=== PATIENT | male | born 1970 | race Caucasian/White ===

== ENCOUNTER 2018-10-09 16:37 | Emergency (ER) | payer OTHER ==
[2018-10-09] MEDS ORDERED: Ondansetron 4 MG/2 ML SDV IVPUSH ONE (17:11)
[2018-10-09] MEDS ORDERED: Sodium Chloride 0.9% 1,000 ML IV ONE ×2 (17:11→18:40)
--- NOTE | 2018-10-09 17:14 | EDM.PDOC ---
ED HPI GENERAL MEDICAL PROBLEM - General Chief Complaint: General Stated Complaint: FLU Time Seen by Provider: 10/09/18 17:11 Source of Information: Reports: Patient History Limitations: Reports: No Limitations - History of Present Illness INITIAL COMMENTS - FREE TEXT/NARRATIVE: HISTORY AND PHYSICAL: History of present illness: Patient is a 48 year old male who presents to the ED today with concern of nausea, vomiting x 1, and diarrhea x 2 days. Patient states his worst concern is the diarrhea. He describes it as watery and states that in 1 day he is had about 15 or more episodes. Patient states he has had one episode of vomiting today. Patient states along the diarrhea he has been having some generalized abdominal pain that he rates a 4/10. Patient states he's had difficulties eating and drinking due to nausea today. Patient is concerned about dehydration as he has had lots of diarrhea and not been able to drink fluids. Patient denies fever, chills, chest pain, shortness of breath, or cough. Denies headache, neck stiff ness, change in vision, syncope, or near syncope. Denies dysuria. Has not noted any blood in urine or stool. Patient denies scrotal pain , masses, or tenderness. Patient has a history of prior kidney stones but denies any other health history. Review of systems: As per history of present illness and below otherwise all systems reviewed and negative. Past medical history: As per history of present illness and as reviewed below otherwise noncontributory. Surgical history: As per history of present illness and as reviewed below otherwise noncontributory. Social history: See social history for further information Family history: As per history of present illness and as reviewed below otherwise noncontributory. Physical exam: General: Patient is alert, oriented, and in no acute distress. Patient sitting comfortably on exam table and is tired appearing. Vomiting on exam. HEENT: Atraumatic, normocephalic, pupils equal and reactive bilaterally, negative for conjunctival pallor or scleral icterus, mucous membranes dry and tacky, TMs normal bilaterally, throat clear, neck supple, nontender, trachea midline. No drooling or trismus noted. No meningeal signs. No hot potato voice noted. Lungs: Clear to auscultation, breath sounds equal bilaterally, chest nontender. Heart: S1S2, regular rate and rhythm without overt murmur Abdomen: Generalized mild pain to palpation without guarding. Positive bowel sounds throughout all quadrants. Otherwise, soft, nondistended. Negative for masses or hepatosplenomegaly. Negative for costovertebral tenderness. Pelvis: Stable nontender. Genitourinary: Deferred. Rectal: Deferred. Skin: Intact, warm, dry. No lesions or rashes noted. Extremities: Atraumatic, negative for cords or calf pain. Neurovascular unremarkable. Neuro: Awake, alert, oriented. Cranial nerves II through XII unremarkable. Cerebellum unremarkable. Motor and sensory unremarkable throughout. Exam nonfocal. Notes: On initial exam, patient did have several episodes of emesis. Following therapeutics, patient's vomiting has resolved throughout the rest of his stay in the ED. After fluids were given, patient expresses resolution of his symptoms. Did offer admission for observation but patient declines and states he is quite comfortable going home. Discussed the importance for follow-up with the primary care provider. Supportive care measures were reviewed and discussed. Voices understanding and is agreeable to plan of care. Denies any further questions or concerns at this time. Diagnostics: CBC, CMP, lactate, lipase, UA, stool studies, strep, influenza, troponin, chest x-ray, abdominal pelvic CT, blood cultures 2 Therapeutics: Zofran, normal saline, Ativan Prescription: Zofran Impression: Dehydration Gastroenteritis Nonobstructive calculus of kidney Plan: 1. Take medications as prescribed. Encourage small but frequent sips of fluids to prevent dehydration. 2. Follow-up with your primary care provider as discussed. 3. Return to the ED as needed and as discussed. Definitive disposition and diagnosis as appropriate pending reevaluation and review of above. - Related Data Allergies Allergy/AdvReac Type Severity Reaction Status Date / Time No Known Allergies Allergy Verified 10/09/18 17:07 Home Meds: Home Meds Ondansetron [Zofran ODT] 4 mg PO Q6H PRN #10 tab.dis 10/09/18 [Rx] Warfarin [Coumadin] 7.5 mg PO DAILY 10/09/18 [History] Past Medical History - Past Health History Medical/Surgical History: Denies Medical/Surgical History HEENT History: Reports: None Cardiovascular History: Reports: None Respiratory History: Reports: None Gastrointestinal History: Reports: None Genitourinary History: Reports: None Musculoskeletal History: Reports: None Neurological History: Reports: None Psychiatric History: Reports: Anxiety Endocrine/Metabolic History: Reports: None Hematologic History: Reports: None Other Hematologic History: DVT Dermatologic History: Reports: None - Infectious Disease History Infectious Disease History: Reports: Chicken Pox - Past Surgical History HEENT Surgical History: Reports: None Social & Family History - Family History Family Medical History: Noncontributory - Tobacco Use Smoking Status *Q: Never Smoker - Recreational Drug Use Recreational Drug Use: No ED ROS GENERAL - Review of Systems Review Of Systems: ROS reveals no pertinent complaints other than HPI. ED EXAM, GENERAL - Physical Exam Exam: See Below (See dictation) Course - Vital Signs Last Recorded V/S: Last Vital Signs Temp 37.6 C 10/09/18 21:50 Pulse 92 10/09/18 21:50 Resp 16 10/09/18 21:50 BP 103/57 L 10/09/18 21:50 Pulse Ox 95 10/09/18 21:50 - Orders/Labs/Meds Labs: Laboratory Tests 10/09/18 10/09/18 10/09/18 Range/Units 17:25 17:25 20:50 WBC 16.23 H (4.0-11.0) K/uL RBC 5.62 (4.50-5.90) M/uL Hgb 17.1 H (13.0-17.0) g/dL Hct 48.2 (38.0-50.0) % MCV 85.8 (80.0-98.0) fL MCH 30.4 (27.0-32.0) pg MCHC 35.5 (31.0-37.0) g/dL RDW Std Deviation 41.4 (28.0-62.0) fl RDW Coeff of Teofilo 13 (11.0-15.0) % Plt Count 273 (150-400) K/uL MPV 11.00 (7.40-12.00) fL Neut % (Auto) 85.7 H (48.0-80.0) % Lymph % (Auto) 5.2 L (16.0-40.0) % [place] % (Auto) 9.0 (0.0-15.0) % Eos % (Auto) 0.0 (0.0-7.0) % Baso % (Auto) 0.1 (0.0-1.5) % Neut # (Auto) 13.9 H (1.4-5.7) K/uL Lymph # (Auto) 0.9 (0.6-2.4) K/uL [place] # (Auto) 1.5 H (0.0-0.8) K/uL Eos # (Auto) 0.0 (0.0-0.7) K/uL Baso # (Auto) 0.0 (0.0-0.1) K/uL Nucleated RBC % 0.0 /100WBC Nucleated RBCs # 0 K/uL Lactate (0.20-2.00) mmol/L Sodium 140 (136-148) mmol/L Potassium 3.0 L (3.5-5.1) mmol/L Chloride 103 (98-107) mmol/L Carbon Dioxide 16.6 L (21.0-32.0) mmol/L BUN 41 H (7.0-18.0) mg/dL Creatinine 2.0 H (0.8-1.3) mg/dL Est Cr Clr Drug Dosing 42.69 mL/min Estimated GFR (MDRD) 36.0 ml/min Glucose 154 H (74-106) mg/dL Calcium 9.1 (8.5-10.1) mg/dL Total Bilirubin 0.5 (0.2-1.0) mg/dL AST 23 (15-37) IU/L ALT 26 (14-63) IU/L Alkaline Phosphatase 65 (46-116) U/L Troponin I < 0.050 (0.000-0.056) ng/mL Total Protein 8.9 H (6.4-8.2) g/dL Albumin 4.1 (3.4-5.0) g/dL Globulin 4.8 H (2.6-4.0) g/dL Albumin/Globulin Ratio 0.9 (0.9-1.6) Lipase 214 (73-393) U/L Urine Color DARK YELLOW Urine Appearance CLEAR Urine pH 6.0 (5.0-8.0) Ur Specific [place] 1.025 (1.001-1.035) Urine Protein 100 H (NEGATIVE) mg/dL Urine Glucose (UA) NEGATIVE (NEGATIVE) mg/dL Urine Ketones NEGATIVE (NEGATIVE) mg/dL Urine Occult Blood NEGATIVE (NEGATIVE) Urine Nitrite NEGATIVE (NEGATIVE) Urine Bilirubin NEGATIVE (NEGATIVE) Urine Urobilinogen 0.2 (<2.0) EU/dL Ur Leukocyte Esterase NEGATIVE (NEGATIVE) Urine RBC 0-2 (0-2/HPF) Urine WBC 0-2 (0-5/HPF) Ur Epithelial Cells OCCASIONAL (NONE-FEW) Urine Bacteria FEW (NEGATIVE) Fine Granular Casts 0-3 (NEGATIVE) Urine Mucus MODERATE (NONE-MOD) 10/09/18 Range/Units 21:04 WBC (4.0-11.0) K/uL RBC (4.50-5.90) M/uL Hgb (13.0-17.0) g/dL Hct (38.0-50.0) % MCV (80.0-98.0) fL MCH (27.0-32.0) pg MCHC (31.0-37.0) g/dL RDW Std Deviation (28.0-62.0) fl RDW Coeff of Teofilo (11.0-15.0) % Plt Count (150-400) K/uL MPV (7.40-12.00) fL Neut % (Auto) (48.0-80.0) % Lymph % (Auto) (16.0-40.0) % [place] % (Auto) (0.0-15.0) % Eos % (Auto) (0.0-7.0) % Baso % (Auto) (0.0-1.5) % Neut # (Auto) (1.4-5.7) K/uL Lymph # (Auto) (0.6-2.4) K/uL [place] # (Auto) (0.0-0.8) K/uL Eos # (Auto) (0.0-0.7) K/uL Baso # (Auto) (0.0-0.1) K/uL Nucleated RBC % /100WBC Nucleated RBCs # K/uL Lactate 1.0 (0.20-2.00) mmol/L Sodium (136-148) mmol/L Potassium (3.5-5.1) mmol/L Chloride (98-107) mmol/L Carbon Dioxide (21.0-32.0) mmol/L BUN (7.0-18.0) mg/dL Creatinine (0.8-1.3) mg/dL Est Cr Clr Drug Dosing mL/min Estimated GFR (MDRD) ml/min Glucose (74-106) mg/dL Calcium (8.5-10.1) mg/dL Total Bilirubin (0.2-1.0) mg/dL AST (15-37) IU/L ALT (14-63) IU/L Alkaline Phosphatase (46-116) U/L Troponin I (0.000-0.056) ng/mL Total Protein (6.4-8.2) g/dL Albumin (3.4-5.0) g/dL Globulin (2.6-4.0) g/dL Albumin/Globulin Ratio (0.9-1.6) Lipase (73-393) U/L Urine Color Urine Appearance Urine pH (5.0-8.0) Ur Specific [place] (1.001-1.035) Urine Protein (NEGATIVE) mg/dL Urine Glucose (UA) (NEGATIVE) mg/dL Urine Ketones (NEGATIVE) mg/dL Urine Occult Blood (NEGATIVE) Urine Nitrite (NEGATIVE) Urine Bilirubin (NEGATIVE) Urine Urobilinogen (<2.0) EU/dL Ur Leukocyte Esterase (NEGATIVE) Urine RBC (0-2/HPF) Urine WBC (0-5/HPF) Ur Epithelial Cells (NONE-FEW) Urine Bacteria (NEGATIVE) Fine Granular Casts (NEGATIVE) Urine Mucus (NONE-MOD) Meds: Medications Discontinued Medications Generic Name Dose Route Start Last Admin Trade Name Freq PRN Reason Stop Dose Admin Sodium Chloride 1,000 mls @ 999 mls/hr 10/09/18 17:11 10/09/18 17:37 Normal Saline IV 10/09/18 18:11 999 mls/hr STAT ONE Administration Sodium Chloride 1,000 mls @ 999 mls/hr 10/09/18 18:40 10/09/18 18:48 Normal Saline IV 10/09/18 19:40 999 mls/hr ONETIME ONE Administration Lorazepam 0.5 mg 10/09/18 17:41 10/09/18 18:02 Ativan IVPUSH 10/09/18 17:42 Not Given ONETIME ONE Ondansetron HCl 4 mg 10/09/18 17:11 10/09/18 17:37 Zofran IVPUSH 10/09/18 17:12 4 mg ONETIME ONE Administration Departure - Departure Time of Disposition: 21:35 Disposition: Home, Self-Care 01 Clinical Impression: Dehydration, Calculus of kidney, Gastroenteritis - Discharge Information Prescriptions: Ondansetron [Zofran ODT] 4 mg PO Q6H PRN #10 tab.dis PRN Reason: Nausea Instructions: Viral Gastroenteritis, Adult, [id number], Kidney Stones, Easy- to-Read, Dehydration, Adult, [id number] Referrals: PCP,None [Primary Care Provider] - Forms: ED Department Discharge Additional Instructions: The following information is given to patients seen in the emergency department who are being discharged to home. This information is to outline your options for follow-up care. We provide all patients seen in our emergency department with a follow-up referral. The need for follow-up, as well as the timing and circumstances, are variable depending upon the specifics of your emergency department visit. If you don't have a primary care physician on staff, we will provide you with a referral. We always advise you to contact your personal physician following an emergency department visit to inform them of the circumstance of the visit and for follow-up with them and/or the need for any referrals to a consulting specialist. The emergency department will also refer you to a specialist when appropriate. This referral assures that you have the opportunity for follow-up care with a specialist. All of these measure are taken in an effort to provide you with optimal care, which includes your follow-up. Under all circumstances we always encourage you to contact your private physician who remains a resource for coordinating your care. When calling for follow-up care, please make the office aware that this follow-up is from your recent emergency room visit. If for any reason you are refused follow-up, please contact the [facility] Emergency Department at and asked to speak to the emergency department charge nurse. [facility] [address] [place] [id number] [facility] [address] [place] [id number] 1. Take medications as prescribed. Encourage small but frequent sips of fluids to prevent dehydration. 2. Follow-up with your primary care provider as discussed. 3. Return to the ED as needed and as discussed.
[2018-10-09] MEDS ORDERED: LORazepam 2 MG/ML SDV IVPUSH ONE (17:41)
[2018-10-09 18:41] LABS: CHLORIDE,CL 103 mmol/L (98-107); SODIUM,NA 140 mmol/L (136-148)
--- NOTE | 2018-10-09 19:18 | CR ---
INDICATION: vomiting, diarrhea, fever TECHNIQUE: Chest 1 view. COMPARISON: None. FINDINGS: Cardiovascular and mediastinum: Heart size and vasculature are normal in caliber and appearance. Mediastinum is within normal limits. Lungs and pleural space: Lungs are clear. No sign of infiltrate or mass. No sign of pleural effusion. No pneumothorax. Bones and soft tissues: No significant findings. IMPRESSION: Unremarkable chest. Dictated by: Flynn Ying MD @ 10/09/2018 19:16:17 (Electronically Signed)
--- NOTE | 2018-10-09 19:38 | CT ---
INDICATION: Right lower quadrant pain COMPARISON: 06/05/2018 TECHNIQUE: CT examination of the abdomen and pelvis was performed without contrast enhancement using 3 mm thick axial sections from the lung bases through the pubic symphysis. Oral contrast was not administered. Please note that all CT scans at this facility use dose modulation, iterative reconstruction, and/or weight-based dosing when appropriate to reduce radiation dose to as low as reasonably achievable. FINDINGS: In the abdomen, the unenhanced liver, pancreas, and adrenals are normal in appearance. A few small calcified granulomata are again seen in the spleen. The previously seen minimal right hydronephrosis and hydroureter have resolved with passage of the previously seen tiny right UVJ calculus. There is a tiny nonobstructive calculus in the lower pole of the right kidney measuring 4 millimeters in diameter, unchanged from the previous study. The unenhanced kidneys are otherwise normal in appearance. The gallbladder is normal in appearance. The abdominal aorta is normal in caliber with no sign of dilatation. There is no sign of retroperitoneal mass or adenopathy. The stomach, loops of small bowel, and colon in the abdomen are normal in appearance. In the pelvis, the appendix is normal in appearance with no sign of inflammatory process. The loops of small bowel and colon in the pelvis are normal in appearance. The prostate is normal in appearance. The urinary bladder is normal in appearance. There is no sign of pelvic or inguinal mass or adenopathy. The lung bases are clear. The osseous structures are normal in appearance for the patient`s age. IMPRESSION: Nothing seen to explain the patient`s right lower quadrant pain. Normal appearance of the appendix. Resolution of previously seen right hydronephrosis and hydroureter with passage of the previously seen tiny right UVJ calculus. CT of the abdomen shows stable appearance of the urinary system except for stable nonobstructive 4 millimeter calculus in the lower pole of the right kidney. Normal CT of the pelvis without contrast. Please note that all CT scans at this facility use dose modulation, iterative reconstruction, and/or weight-based dosing when appropriate to reduce radiation dose to as low as reasonably achievable. Dictated by Cain Brandt MD @ Oct 09 2018 7:29PM Signed by Dr. Cain Brandt @ Oct 09 2018 7:35PM
== END 2018-10-09 21:50 | disposition home or self-care (01) ==
LOC: MW.ED 16:37
DX: K52.9 Noninfective gastroenteritis and colitis, unspecified (principal); N13.2 Hydronephrosis with renal and ureteral calculous obstruction
CPT/HCPCS: 36415; 71045; 74176; 80053; 81001; 83605; 83690; 84484; 85025; 87040; 87046; 87081; 87324; 87328; 87329; 87804; 87880; 87899; 93005; 96361; 96374; 99284; J2405; J7040

== ENCOUNTER 2019-05-06 08:59 | Emergency (ER) | payer OTHER ==
--- NOTE | 2019-05-06 09:45 | EDM.PDOC ---
ED HPI GENERAL MEDICAL PROBLEM - General Chief Complaint: General Stated Complaint: SPOKE TO NURSE Time Seen by Provider: 05/06/19 08:59 Source of Information: Reports: Patient History Limitations: Reports: No Limitations - History of Present Illness INITIAL COMMENTS - FREE TEXT/NARRATIVE: History of present illness: []Patient has a history of hemorrhoid and this morning it had dark blood expressed from it and then an episode of bright red blood. It has since talked. He denies any fevers, chills or abdominal pain. He called an advice nurse who told him to come to the ER because he is feeling dizzy. Review of systems: As per history of present illness and below otherwise all systems reviewed and negative. Past medical history: As per history of present illness and as reviewed below otherwise noncontributory. Surgical history: As per history of present illness and as reviewed below otherwise noncontributory. Social history: No reported history of drug or alcohol abuse. Family history: As per history of present illness and as reviewed below otherwise noncontributory. Physical exam: General: Well developed, well nourished in NAD HEENT: Atraumatic, normocephalic, pupils reactive, negative for conjunctival pallor or scleral icterus, mucous membranes moist, throat clear, neck supple, nontender, trachea midline. Lungs: Clear to auscultation, breath sounds equal bilaterally, chest nontender. Heart: S1S2, regular, negative for clicks, rubs, or JVD. Abdomen: NABS, Soft, nondistended, nontender. Negative for masses or hepatosplenomegaly. Negative for costovertebral tenderness. Pelvis: Stable nontender. Genitourinary: Deferred. Rectal: opened external hemorrhoid with clot, no active bleeding Extremities: Atraumatic, negative for cords or calf pain. Neurovascular unremarkable. Neuro: Awake, alert, oriented. Cranial nerves II through XII unremarkable. Cerebellum unremarkable. Motor and sensory unremarkable throughout. Exam nonfocal. Skin:warm and dry Diagnostics: None, vital signs stable Therapeutics: None ED Course: Stable Impression: Hemorrhoid Prescriptions: Aidan's butt balm, Plan: Sitz baths, follow-up with general surgery use cream 3 times a day. Definitive disposition and diagnosis as appropriate pending reevaluation and review of above. - Related Data Allergies Allergy/AdvReac Type Severity Reaction Status Date / Time No Known Allergies Allergy Verified 05/06/19 09:22 Home Meds: Home Meds . [No Known Home Meds] 05/06/19 [History] Past Medical History - Past Health History Medical/Surgical History: Denies Medical/Surgical History HEENT History: Reports: None Cardiovascular History: Reports: None Respiratory History: Reports: None Gastrointestinal History: Reports: None Genitourinary History: Reports: None Musculoskeletal History: Reports: None Neurological History: Reports: None Psychiatric History: Reports: Anxiety Endocrine/Metabolic History: Reports: None Hematologic History: Reports: None Other Hematologic History: DVT Dermatologic History: Reports: None - Infectious Disease History Infectious Disease History: Reports: Chicken Pox - Past Surgical History HEENT Surgical History: Reports: None Social & Family History - Family History Family Medical History: Noncontributory - Tobacco Use Smoking Status *Q: Never Smoker Second Hand Smoke Exposure: No - Caffeine Use Caffeine Use: Reports: None - Recreational Drug Use Recreational Drug Use: No ED ROS GENERAL - Review of Systems Review Of Systems: See Below ED EXAM, GENERAL - Physical Exam Exam: See Below Course - Vital Signs Last Recorded V/S: Last Vital Signs Temp 96.3 F 05/06/19 09:19 Pulse 50 L 05/06/19 09:19 Resp 18 05/06/19 09:19 BP 130/86 05/06/19 09:19 Pulse Ox 95 05/06/19 09:19 Departure - Departure Time of Disposition: 09:47 Disposition: Home, Self-Care 01 Condition: Good Clinical Impression: External hemorrhoid - Discharge Information *PRESCRIPTION DRUG MONITORING PROGRAM REVIEWED*: No *COPY OF PRESCRIPTION DRUG MONITORING REPORT IN PATIENT GLEN: No Referrals: PCP,None [Primary Care Provider] - Forms: ED Department Discharge Additional Instructions: The following information is given to patients seen in the emergency department who are being discharged to home. This information is to outline your options for follow-up care. We provide all patients seen in our emergency department with a follow-up referral. The need for follow-up, as well as the timing and circumstances, are variable depending upon the specifics of your emergency department visit. If you don't have a primary care physician on staff, we will provide you with a referral. We always advise you to contact your personal physician following an emergency department visit to inform them of the circumstance of the visit and for follow-up with them and/or the need for any referrals to a consulting specialist. The emergency department will also refer you to a specialist when appropriate. This referral assures that you have the opportunity for follow-up care with a specialist. All of these measure are taken in an effort to provide you with optimal care, which includes your follow-up. Under all circumstances we always encourage you to contact your private physician who remains a resource for coordinating your care. When calling for follow-up care, please make the office aware that this follow-up is from your recent emergency room visit. If for any reason you are refused follow-up, please contact the [facility] Emergency Department at and asked to speak to the emergency department charge nurse. Take meds as directed, follow up with your primary care physician, return to ER if symptoms worsen or change. Some take sitz baths 3 times a day or as much as possible, use but balm 3 times a day follow-up with general surgery [facility] - General Surgery Professional Building [address] [place] [address], [address] [place] [address]
== END 2019-05-06 10:00 | disposition home or self-care (01) ==
LOC: MW.ED 08:59
DX: K64.4 Residual hemorrhoidal skin tags (principal)
CPT/HCPCS: 99282

== ENCOUNTER 2019-06-29 10:42 | Day surgery (SDC) | payer OTHER ==
[~2019-06-29 10:42] MED LIST: Lactated Ringers 1,000 ML IV SCH; Sodium Chloride 0.9% 10 ML SDV IV PRN; Sodium Chloride 0.9% 10 ML Syringe FLUSH PRN; Sodium Chloride 0.9% 2.5 ML Syringe FLUSH PRN
--- NOTE | 2019-06-29 11:58 | PCM.PREANE ---
Preanesthetic Assessment - Anesthesia/Transfusion/Family Hx Anesthesia History: Prior Anesthesia Reaction Family History of Anesthesia Reaction: No Transfusion History: No Prior Transfusion(s) - Review of Systems General: No Symptoms Pulmonary: No Symptoms Cardiovascular: No Symptoms Gastrointestinal: No Symptoms Neurological: No Symptoms Other: Reports: None - Physical Assessment NPO Status Date: 06/28/19 Vital Signs: Last Vital Signs Temp 97.5 F 06/29/19 11:17 Pulse 62 06/29/19 11:17 Resp 16 06/29/19 11:17 BP 120/82 06/29/19 11:17 Pulse Ox 96 06/29/19 11:17 Height: 5 ft 7 in Weight: 97.069 kg ASA Class: 2 Mental Status: Alert & Oriented x3 Airway Class: Mallampati = 2 Dentition: Reports: Normal Dentition ROM/Head Extension: Full Lungs: Clear to Auscultation, Normal Respiratory Effort Cardiovascular: Regular Rate, Regular Rhythm - Allergies Allergies/Adverse Reactions: Allergies Allergy/AdvReac Type Severity Reaction Status Date / Time No Known Allergies Allergy Verified 06/29/19 11:16 - Blood Blood Available: No - Anesthesia Plan Pre-Op Medication Ordered: None - Acknowledgements Anesthesia Type Planned: General Anesthesia Pt an Appropriate Candidate for the Planned Anesthesia: Yes Alternatives and Risks of Anesthesia Discussed w Pt/Guardian: Yes Pt/Guardian Understands and Agrees with Anesthesia Plan: Yes Additional Comments: pmh : hx of DVT 1 year ago, no identified thrombophilia, off coumadin now, not on antiplatelet agents PLAN: tiva PreAnesthesia Questionnaire - Past Health History Medical/Surgical History: Denies Medical/Surgical History HEENT History: Reports: Other (See Below) Other HEENT History: wears glasses Cardiovascular History: Reports: Blood Clots/VTE/DVT Other Cardiovascular History: hx of DVT right leg 1 year ago- took Warfarin for a few months. 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 Respiratory History: Reports: None Gastrointestinal History: Reports: Hemorrhoids Genitourinary History: Reports: Renal Calculus Other Genitourinary History: passed a kidney stone 1 year ago Musculoskeletal History: Reports: Fracture Other Musculoskeletal History: hx of fx right thumb Neurological History: Reports: None Psychiatric History: Reports: Anxiety Endocrine/Metabolic History: Reports: Obesity/BMI 30+ Hematologic History: Reports: None Other Hematologic History: DVT Dermatologic History: Reports: Psoriasis - Infectious Disease History Infectious Disease History: Reports: Chicken Pox - Past Surgical History Head Surgeries/Procedures: Reports: None HEENT Surgical History: Reports: None Cardiovascular Surgical History: Reports: None Musculoskeletal Surgical History: Reports: ORIF Other Musculoskeletal Surgeries/Procedures:: hx of ORIF right thumb- hardware removed - SUBSTANCE USE Smoking Status *Q: Never Smoker Recreational Drug Use History: No - HOME MEDS Home Medications: Home Meds . [No Known Home Meds] 05/06/19 [History] - CURRENT (IN HOUSE) MEDS Current Meds: Current Medications Lactated Ringer's (Ringers, Lactated) 1,000 mls @ 125 mls/hr IV ASDIRECTED ATILIO Last Admin: 06/29/19 11:15 Dose: 125 mls/hr Sodium Chloride (Saline Flush) 10 ml FLUSH ASDIRECTED PRN PRN Reason: Keep Vein Open Sodium Chloride (Saline Flush) 2.5 ml FLUSH ASDIRECTED PRN PRN Reason: Keep Vein Open Sodium Chloride (Saline Flush) 10 ml FLUSH ASDIRECTED PRN PRN Reason: Keep Vein Open Sodium Chloride (Saline Flush) 2.5 ml FLUSH ASDIRECTED PRN PRN Reason: Keep Vein Open Sodium Chloride (Normal Saline) 10 ml IV ASDIRECTED PRN PRN Reason: IV Use
[2019-06-29] MEDS ORDERED: Midazolam 1 MG/ML 2 ML SDV ONE (12:19)
[2019-06-29] MEDS ORDERED: Propofol 200 MG/20 ML SDV ONE (12:19)
--- NOTE | 2019-06-29 13:51 | PCM.OPNOTE ---
- General Post-Op/Procedure Note Date of Surgery/Procedure: 06/29/19 Operative Procedure(s): Screening colonoscopy Findings: Cecal polyp, transverse colon polyp Pre Op Diagnosis: screening colonoscopy Post-Op Diagnosis: Cecal polyp, transverse colon polyp Anesthesia Technique: MAC Primary Surgeon: Ava Diaz Condition: Good
--- NOTE | 2019-06-29 14:10 | PCM.POSTAN ---
POST ANESTHESIA ASSESSMENT - MENTAL STATUS Mental Status: Alert - VITAL SIGNS Vital Signs: Last Vital Signs Temp 36.4 C 06/29/19 11:17 Pulse 60 06/29/19 14:05 Resp 16 06/29/19 14:05 BP 119/81 06/29/19 14:05 Pulse Ox 98 06/29/19 14:05 - RESPIRATORY Respiratory Status: Respiratory Rate WNL - CARDIOVASCULAR CV Status: Pulse Rate WNL - GASTROINTESTINAL GI Status: No Symptoms - POST OP HYDRATION Hydration Status: Adequate & Stable
--- NOTE | 2019-06-29 15:58 | PCM48HPAN ---
Post Anesthesia Note - EVALUATION WITHIN 48HRS OF ANESTHETIC Vital Signs in Normal Range: Yes Patient Participated in Evaluation: Yes Respiratory Function Stable: Yes Airway Patent: Yes Cardiovascular Function Stable: Yes Hydration Status Stable: Yes Pain Control Satisfactory: Yes Nausea and Vomiting Control Satisfactory: Yes Mental Status Recovered: Yes Vital Signs: Last Vital Signs Temp 36.1 C 06/29/19 14:15 Pulse 59 L 06/29/19 14:15 Resp 16 06/29/19 14:15 BP 118/81 06/29/19 14:15 Pulse Ox 99 06/29/19 14:15
--- NOTE | 2019-06-29 22:54 | OR ---
SURGEON: AVA DIAZ MD DATE OF PROCEDURE: 06/29/2019 PREOPERATIVE DIAGNOSIS: Screening colonoscopy. POSTOPERATIVE DIAGNOSIS: Transverse colon polyp, cecal polyp. PROCEDURE PERFORMED: Screening colonoscopy with polypectomy. PRIMARY SURGEON: Ava Diaz MD ANESTHESIA: MAC. INSTRUMENT USED: Olympus colonoscope. EXTENT OF EXAM: To the cecum. PREPARATION: Good. LIMITATIONS: None. INDICATIONS FOR EXAMINATION: Patient is a 49-year-old male who presents for a screening colonoscopy. I explained the procedure, expected perioperative course, and risks including bleeding, infection, or damage to surrounding structures including perforation. The patient verbalized understanding and wishes to proceed. PROCEDURE IN DETAIL: The patient was brought to the endoscopy suite and placed in the left lateral decubitus position. A time-out was completed verifying the patient's name, age, date of , allergies, and procedure to be performed. Monitored anesthesia care was induced and continuous oxygen was provided via nasal cannula throughout the procedure. After adequate sedation was achieved, a digital rectal exam was performed. This exam was within normal limits. A well-lubricated colonoscope was inserted in the rectum and advanced under direct visualization to the level of the cecum. The cecum was identified by both visual and anatomic landmarks. A photograph was taken of the cecal cap. However, I was unable to retroflex the scope within the cecum due to looping of the scope more proximally. The scope was then fully withdrawn while examining the color, texture, anatomy, and integrity of the mucosa from the cecum to the anal canal. The patient was found to have a small sessile polyp within the cecum. This was removed in piecemeal fashion using a cold biopsy forceps. The patient was then found to have another polyp within the transverse colon. This was removed in similar fashion. The remainder of the colon appeared normal. The scope was then brought into the rectum and retroflexed to allow visualization of the anal canal opening. This appeared normal and a photograph was taken. The scope was then straightened out and fully withdrawn. The cecum to anus time was 18 minutes. The patient tolerated the procedure well and was transferred to the PACU in stable condition. ENDOSCOPIC DIAGNOSIS: Transverse colon polyp, cecal polyp. RECOMMENDATIONS: Follow up in clinic in 2 weeks. JAYLAN KOHLI /[id number]
== END 2019-06-29 14:39 | disposition home or self-care (01) ==
LOC: MW.SDS 10:42
PROVIDERS: ATTEND Surgery
DX: Z12.11 Encounter for screening for malignant neoplasm of colon (principal); D12.0 Benign neoplasm of cecum; D12.3 Benign neoplasm of transverse colon; E66.9 Obesity, unspecified; Z68.33 Body mass index [BMI] 33.0-33.9, adult
CPT/HCPCS: 45380; J2250; J2704; J7120; 88305

== ENCOUNTER 2019-11-22 07:18 | Emergency (ER) | payer OTHER ==
--- NOTE | 2019-11-22 07:31 | EDM.PDOC ---
ED HPI GENERAL MEDICAL PROBLEM - General Chief Complaint: Lower Extremity Injury/Pain Stated Complaint: BLOOD CLOTH Time Seen by Provider: 11/22/19 07:21 - History of Present Illness INITIAL COMMENTS - FREE TEXT/NARRATIVE: History of present illness: [Patient presents with right medial thigh pain for 2 days he says it feels like a previous blood clot he is concerned he may have a new blood clot he had a previous one in the right calf is not currently taking any anticoagulants. No trauma no fever no chills no chest pain or shortness of breath nothing makes it better or worse] Review of systems: As per history of present illness and below otherwise all systems reviewed and negative. Past medical history: As per history of present illness and as reviewed below otherwise noncontributory. Surgical history: As per history of present illness and as reviewed below otherwise noncontributory. Social history: No reported history of drug or alcohol abuse. Family history: As per history of present illness and as reviewed below otherwise noncontributory. Physical exam: HEENT: Atraumatic, normocephalic, pupils reactive, negative for conjunctival pallor or scleral icterus, mucous membranes moist, throat clear, neck supple, nontender, trachea midline. Lungs: Clear to auscultation, breath sounds equal bilaterally, chest nontender. Heart: S1S2, regular, negative for clicks, rubs, or JVD. Abdomen: Soft, nondistended, nontender. Negative for masses or hepatosplenomegaly. Negative for costovertebral tenderness. Pelvis: Stable nontender. Genitourinary: Deferred. Rectal: Deferred. Extremities: Atraumatic, negative for cords there is tenderness to the medial thigh over the femoral vein neurovascular unremarkable. Neuro: Awake, alert, oriented. Cranial nerves II through XII unremarkable. Cerebellum unremarkable. Motor and sensory unremarkable throughout. Exam nonfocal. Diagnostics: [] Therapeutics: [] I [] Plan: He will undergo Doppler ultrasound of the leg to rule out DVT. [] Definitive disposition and diagnosis as appropriate pending reevaluation and review of above. right lower leg Pain Score (Numeric/FACES): 5 - Related Data Allergies Allergy/AdvReac Type Severity Reaction Status Date / Time No Known Allergies Allergy Verified 11/22/19 07:27 Home Meds: Home Meds Apixaban [Eliquis] 10 mg PO BID 17 Days #48 tablet 11/22/19 [Rx] Past Medical History - Past Health History Medical/Surgical History: Denies Medical/Surgical History HEENT History: Reports: Other (See Below) Other HEENT History: wears glasses Cardiovascular History: Reports: Blood Clots/VTE/DVT Other Cardiovascular History: hx of DVT right leg 1 year ago- took Warfarin for a few months. 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 Respiratory History: Reports: None Gastrointestinal History: Reports: Hemorrhoids Genitourinary History: Reports: Renal Calculus Other Genitourinary History: passed a kidney stone 1 year ago Musculoskeletal History: Reports: Fracture Other Musculoskeletal History: hx of fx right thumb Neurological History: Reports: None Psychiatric History: Reports: Anxiety Endocrine/Metabolic History: Reports: Obesity/BMI 30+ Hematologic History: Reports: None Other Hematologic History: DVT Dermatologic History: Reports: Psoriasis - Infectious Disease History Infectious Disease History: Reports: Chicken Pox - Past Surgical History Head Surgeries/Procedures: Reports: None HEENT Surgical History: Reports: None Cardiovascular Surgical History: Reports: None Musculoskeletal Surgical History: Reports: ORIF Other Musculoskeletal Surgeries/Procedures:: hx of ORIF right thumb- hardware removed Social & Family History - Family History Family Medical History: Noncontributory - Caffeine Use Caffeine Use: Reports: None Review of Systems - Review of Systems Review Of Systems: See Below ED EXAM, GENERAL - Physical Exam Exam: See Below Course - Vital Signs Text/Narrative:: Miky Rivero reads the ultrasounds a small DVT of undetermined age. Patient will be started on outpatient medications to include a dose of Eliquis in the ED and a prescription for Eliquis at home he is to follow-up with primary care the ED for further problems Last Recorded V/S: Last Vital Signs Temp 35.9 C L 11/22/19 07:28 Pulse 71 11/22/19 07:28 Resp 18 11/22/19 07:28 BP 132/81 11/22/19 07:28 Pulse Ox 97 11/22/19 07:28 - Orders/Labs/Meds Orders: Active Orders 24 hr Category Date Time Status Apixaban [Eliquis] Med 11/22/19 09:34 Once 10 mg PO ONETIME ONE Medication Orders Apixaban (Eliquis) 10 mg PO ONETIME ONE Stop: 11/22/19 09:35 Meds: Medications Generic Name Dose Route Start Last Admin Trade Name Frefélix BLACKBURNN Reason Stop Dose Admin Apixaban 10 mg 11/22/19 09:34 Eliquis PO 11/22/19 09:35 ONETIME ONE Departure - Departure Time of Disposition: 09:36 Disposition: Home, Self-Care 01 Condition: Good Clinical Impression: DVT (deep venous thrombosis) - Discharge Information *PRESCRIPTION DRUG MONITORING PROGRAM REVIEWED*: Not Applicable *COPY OF PRESCRIPTION DRUG MONITORING REPORT IN PATIENT GLEN: Not Applicable Prescriptions: Apixaban [Eliquis] 10 mg PO BID 17 Days #48 tablet Instructions: Deep Vein Thrombosis Referrals: PCP,None [Primary Care Provider] - Forms: ED Department Discharge Additional Instructions: The following information is given to patients seen in the emergency department who are being discharged to home. This information is to outline your options for follow-up care. We provide all patients seen in our emergency department with a follow-up referral. The need for follow-up, as well as the timing and circumstances, are variable depending upon the specifics of your emergency department visit. If you don't have a primary care physician on staff, we will provide you with a referral. We always advise you to contact your personal physician following an emergency department visit to inform them of the circumstance of the visit and for follow-up with them and/or the need for any referrals to a consulting specialist. The emergency department will also refer you to a specialist when appropriate. This referral assures that you have the opportunity for follow-up care with a specialist. All of these measure are taken in an effort to provide you with optimal care, which includes your follow-up. Under all circumstances we always encourage you to contact your private physician who remains a resource for coordinating your care. When calling for follow-up care, please make the office aware that this follow-up is from your recent emergency room visit. If for any reason you are refused follow-up, please contact the [facility] Emergency Department at and asked to speak to the emergency department charge nurse. [facility] [address] [place] [id number] [address] Sepsis Event Note - Focused Exam Vital Signs: Vital Signs Temp Pulse Resp BP Pulse Ox 11/22/19 07:28 35.9 C L 71 18 132/81 97 Date Exam was Performed: 11/22/19 Time Exam was Performed: 09:35 - My Orders Last 24 Hours: My Active Orders 11/22/19 09:34 Apixaban [Eliquis] 10 mg PO ONETIME ONE - Assessment/Plan Last 24 Hours: My Active Orders 11/22/19 09:34 Apixaban [Eliquis] 10 mg PO ONETIME ONE
--- NOTE | 2019-11-22 09:22 | US ---
INDICATION: Leg pain and swelling TECHNIQUE: Ultrasound venous duplex lower right extremity. Compression venous exam was performed using thompson-scale, color Doppler, and spectral Doppler imaging. COMPARISON: None. FINDINGS: Sonographic imaging demonstrates the right common femoral, deep femoral, superficial femoral, and popliteal veins to be fully compressible with normal color Doppler blood flow. A small and somewhat echogenic thrombus is present in the posterior tibial vein. IMPRESSION: Relatively small below the knee deep venous thrombus in the right posterior tibial vein. This is of indeterminate age. Remainder of the exam is unremarkable. Dictated by Evan Curtis MD @ Nov 22 2019 9:15AM Signed by Dr. Evan Curtis @ Nov 22 2019 9:20AM
[2019-11-22] MEDS ORDERED: Apixaban 5 MG Tab PO ONE ×2 (09:34→09:44)
== END 2019-11-22 10:15 | disposition home or self-care (01) ==
LOC: MW.ED 07:18
DX: I82.441 Acute embolism and thrombosis of right tibial vein (principal)
CPT/HCPCS: 93971; 99283; A9270

== ENCOUNTER 2023-01-31 11:34 | Emergency (ER) | payer BC, OTHER ==
[2023-01-31 13:41] LABS: BASOPHILS PERCENT AUTO 0.3 % (0.0-1.5); EOSINOPHILS ABSOLUTE AUTO 0.2 K/uL (0.0-0.7); EOSINOPHILS PERCENT AUTO 2.4 % (0.0-7.0); HEMATOCRIT 46.3 % (38.0-50.0); HEMOGLOBIN 15.8 g/dL (13.0-17.0); LYMPHOCYTES ABSOLUTE AUTO 2.6 K/uL (0.6-2.4); LYMPHOCYTES PERCENT AUTO 41.7 % (16.0-40.0); MEAN CORPUSCULAR HEMOGLOBIN 29.9 pg (27.0-32.0); MEAN CORPUSCULAR HGB CONC 34.1 g/dL (31.0-37.0); MEAN CORPUSCULAR VOLUME 87.7 fL (80.0-98.0); MONOCYTES ABSOLUTE AUTO 0.5 K/uL (0.0-0.8); MONOCYTES PERCENT AUTO 7.7 % (0.0-15.0); NEUTROPHILS PERCENT AUTO 47.9 % (48.0-80.0); NRBC ABSOLUTE 0 K/uL; PLATELET COUNT,PLT 259 K/uL (150-400); RED BLOOD CELL COUNT 5.28 M/uL (4.50-5.90); WHITE BLOOD CELL COUNT,WBC 6.21 K/uL (4.0-11.0)
[2023-01-31 14:07] LABS: INR 1.07 (0.86-1.11)
[2023-01-31 14:17] LABS: A/G RATIO 1.1 (0.9-1.6); ALBUMIN 4.1 g/dL (3.4-5.0); BILIRUBIN TOTAL 0.7 mg/dL (0.2-1.0); CALCIUM 9.5 mg/dL (8.5-10.1); CARBON DIOXIDE,CO2 23.6 mmol/L (21.0-32.0); CREATININE 1.1 mg/dL (0.8-1.3); EST CRCL DRUG DOSING (CG) 74.28 mL/min; POTASSIUM,K 4.2 mmol/L (3.5-5.1); PROTEIN TOTAL,TP 7.9 g/dL (6.4-8.2)
== END 2023-01-31 16:48 | disposition home or self-care (01) ==
LOC: MW.ED 11:34
DX: M79.604 Pain in right leg (principal); Z91.148 Patient's other noncompliance with medication regimen for other reason; Z86.718 Personal history of other venous thrombosis and embolism
CPT/HCPCS: 36415; 80053; 85025; 85610; 93971-26-RT; 93971-RT; 99283; 99284

== ENCOUNTER 2023-07-01 11:14 | Day surgery (SDC) | payer OTHER, BC ==
[~2023-07-01 11:14] MED LIST changes: -Sodium Chloride 0.9% 10 ML SDV IV PRN; +Sodium Chloride 0.9% 20 ML SDV IV PRN
[2023-07-01] MEDS ORDERED: propofoL 50 ML ONE (11:56)
== END 2023-07-01 13:00 | disposition home or self-care (01) ==
LOC: MW.SDS 11:14
PROVIDERS: ATTEND Surgery
DX: Z12.11 Encounter for screening for malignant neoplasm of colon (principal); D12.3 Benign neoplasm of transverse colon; D12.0 Benign neoplasm of cecum; I82.4Z9 Acute embolism and thrombosis of unspecified deep veins of unspecified distal lower extremity; R35.1 Nocturia; D36.9 Benign neoplasm, unspecified site; Z79.899 Other long term (current) drug therapy; Z86.39 Personal history of other endocrine, nutritional and metabolic disease
CPT/HCPCS: 45385; J2704; J7120; 00811